=== PATIENT | male | born 1955 | race Caucasian/White ===

== ENCOUNTER → 2016-12-15 | Outpatient (CLI) | payer MEDICAID | LOC: LAB 14:50 | DX: R97.20 Elevated prostate specific antigen [PSA] (principal) ==

== ENCOUNTER → 2017-03-13 | Outpatient (CLI) | payer MEDICAID | LOC: LAB 09:48 | DX: C61 Malignant neoplasm of prostate (principal) ==

== ENCOUNTER → 2017-04-17 | Outpatient (CLI) | payer MEDICAID | LOC: LAB 09:56 | DX: C61 Malignant neoplasm of prostate (principal) ==

== ENCOUNTER → 2017-05-15 | Outpatient (CLI) | payer MEDICAID | LOC: LAB 10:12 | DX: Z79.899 Other long term (current) drug therapy (principal) ==